=== PATIENT | male | born 1975 | race Caucasian/White ===

== ENCOUNTER → 2017-03-12 | Day surgery (SDC) | payer OTHER ==
[2017-02-19 12:54] VITALS: Ht 170.2 cm; Wt 84.1 kg
[~2017-03-12] VITALS: Ht 170.2 cm; Wt 84.1 kg
[~2017-03-12] MED LIST: ATROPINE SULFATE 0.1 MG/ML 5ML SYR IV PRN; BUPIVACAINE 0.5 % 5 MG/1 ML MPF 30ML VIAL ONE; DEXAMETHASONE SOD INJ 4 MG/ML VIAL IV PRN; EpHEDrine SULFATE INJ 50 MG/ML AMP IV PRN; FENTANYL CITRATE INJ 50 MCG/1 ML 2 ML VIAL IV PRN; FENTANYL CITRATE INJ 50 MCG/1 ML 2 ML VIAL ONE; HYDR-5688 PO; KETOROLAC TROMETHAMINE 30 MG/ML VIAL IV. PRN; LABETALOL HCL IV 5 MG/ML 20ML IV PRN; LACTATED RINGER'S 1000ML 1,000 ML IV SCH; LIDOCAINE HCL 2% 2 ML VIAL (20MG/ML) ONE; LISI-461 PO; MELATAB2 PO; METOCLOPRAMIDE HCL INJ 5 MG/ML 2 ML VIAL IV PRN; MIDAZOLAM HCL 1 MG/ML 2ML VIAL ONE; MoRPHine SULFATE 10 MG/ML CARP/VIAL IV PRN; ONDANSETRON INJ 2 MG/ML 2 ML VIAL IV PRN; ONDANSETRON INJ 2 MG/ML 2 ML VIAL ONE; OXYCODONE/ACETAMINOPHEN 5-325 TAB PO PRN; PANT40TA PO; PHENYLEPHRINE 100MCG/ML 5ML SYR IV PRN; PROP10TA7 PO; PROPOFOL IV EMULSION 10 MG/ML 20 ML VIAL IV ONE; SODIUM CHLORIDE 0.9% 1000ML 1,000 ML IV SCH
--- NOTE | 2017-03-12 12:27 | History & Physical Bridge Note ---
H&P Re-Evaluation Bridge Note: I have examined the patient, reviewed the History & Physical and in the interval since the performance of the History & Physical I have noted the following changes of clinical significance: No changes noted
[2017-03-12 13:05] VITALS: TEMP 36.4
--- NOTE | 2017-03-12 13:08 | [facility] Operative Report ---
Operative Report Operative Date Mar 12, 2017. Pre-Operative Diagnosis Sterilization Post-Operative Diagnosis same Procedure(s) Performed Vasectomy Under Anesthesia Surgeon Dr Darren Ribeiro Senior Packaging Engineer Surgeon(s) none Estimated Blood Loss 0cc Findings easily identified vasa b/l Specimens A) Right Vas Deferens B)Left Vas Deferens Drains none Anesthesia MAC & local Complication(s) None Disposition Recovery Room / PACU (stable) Indications desired sterility Description of Procedure Jj Ramey was identified in the preoperative holding area, informed consents were reviewed and completed and he was transported to the operating suite. He received appropriate sedation and was prepped and draped in sterile fashion. A mid scrotal incision was made and the left vas deferens brought to the incision. 0.5% marcaine was injected for local anesthesia. The vas was skeletonized for a length of ~3cm. Micro clips were placed proximally and distally with suture ligation of the vas outside of those clips. The segment of vas between the clips was excised and needle point cautery was used to ablate the lumen of the remaining proximal and distal vas. The specimen was labeled L vas deferens and passed off the table. I repeated the exact same procedure on the right, via the same mid scrotal incision. This specimen was labeled right vas deferens. The skin was then reapproximated with 2 - vertical mattress 3-0 chromic stitches. He was reversed from anesthesia and taken to the PACU in stable condition. I attest to the content of the Intraoperative Record and any orders documented therein. Any exceptions are noted below.
--- NOTE | 2017-03-12 13:11 | Discharge Instructions-SurgCtr ---
Discharge Instructions Date of Service Mar 12, 2017. Visit Reason for Visit: Sterilization Discharge Discharge Diagnosis / Problem: sterilization Discharge Goals Goal(s): Therapeutic intervention, Specific goals Activity Recommendations Activity Limitations: per Instructions/Follow-up section Lifting Limitations: gradually increase as tolerated Exercise/Sports Limitations: gradually increase as tolerated May Resume Sexual Activity: after one week (after 5 days) Shower/Bathe: no limitations Driving or Machine Use: resume 1 day after discharge Please avoid overly strenuous activity for the next 4-5 days Anesthesia . Post Anesthesia Instructions: If you have had General Anesthesia or IV Sedation: * Do not drive today. * Resume driving when surgeon permits. * Do not make important decisions or sign legal documents today. * Call surgeon for: 1. Temperature elevations greater than 101 degrees F. 2. Uncontrollable pain. 3. Excessive bleeding. 4. Persistent nausea and vomiting. 5. Medication intolerance (nausea, vomiting or rash). * For nausea and vomiting use only clear liquids such as: tea, soda, bouillon until nausea subsides, then gradually increase diet as tolerated. * If you have any concerns or questions, call your surgeon's office. If physician is unavailable and it is an emergency, call 911 or go to the nearest emergency room. . Instructions / Follow-Up Instructions / Follow-Up Please continue to use some form of contraception until you have a negative semen analysis. Diet Recommendations Home Diet: no limitations, resume previous diet Procedures Procedures Performed: Vasectomy Under Anesthesia Pending Studies Studies pending at discharge: no Medical Emergencies . Who to Call and When: Medical Emergencies: If at any time you feel your situation is an emergency, please call 911 immediately. . Non-Emergent Contact Non-Emergency issues call your: Urologist Call Non-Emergent contact if: you have a fever, temperature is above 101.5, your pain is not controlled, your pain is worsening . . "Provider Documentation" section prepared by Beto Kim. . [place] Drug Monitoring Program Search Results: patient reviewed within database, no issues identified
[2017-03-12 13:22] VITALS: BP 110/75; PULSE 55; O2SAT 95
--- NOTE | 2017-03-12 13:27 | Anesthesia Progress Nt - [facility] ---
Anesthesia Post Op Note Date & Time Mar 12, 2017 at 13:26 Vital Signs Pain Intensity: 0 Vital Signs Past 12 Hours Date Time Temp Pulse Resp B/P (MAP) Pulse Ox O2 Delivery O2 Flow Rate FiO2 03/12/17 13:22 55 20 110/75 (87) 95 Room Air 03/12/17 13:05 36.4 56 12 102/66 (78) 94 Room Air 03/12/17 11:14 36.6 62 16 119/84 (96) 94 Room Air Notes Mental Status: alert / awake / arousable, participated in evaluation Pt Amnestic to Procedure: Yes Nausea / Vomiting: adequately controlled Pain: adequately controlled Airway Patency, RR, SpO2: stable & adequate BP & HR: stable & adequate Hydration State: stable & adequate Anesthetic Complications: no major complications apparent
== END | disposition home or self-care (01) ==
LOC: X.SURG 10:49
PROVIDERS: ATTEND Urology
DX: Z30.2 Encounter for sterilization (principal); I10 Essential (primary) hypertension; K21.9 Gastro-esophageal reflux disease without esophagitis; Z79.899 Other long term (current) drug therapy